=== PATIENT | female | born 1960 | race Caucasian/White ===

== ENCOUNTER 2018-12-15 14:47 | Emergency (ER) | payer SELFPAY ==
[~2018-12-15] VITALS: Ht 165.1 cm; Wt 104.3 kg
[2018-12-15 15:04] VITALS: Ht 165.1 cm; Wt 104.3 kg
[2018-12-15 15:42] LABS: BASOPHIL % 1.6 % (0-2); PLATELET COUNT 314 x10^3mcL (130-400)
[2018-12-15 15:49] LABS: CALCIUM 7.8 mg/dL (8.5-10.1); CARBON DIOXIDE 25.2 mmol/L (21-32); CHLORIDE SERUM 107 mmol/L (98-107); CREATININE SERUM 0.8 mg/dL (0.6-1.0); GFR1 > 60 mL/min; GLUCOSE SERUM 87 mg/dL (74-106); POTASSIUM SERUM 4.1 mmol/L (3.5-5.1); SODIUM SERUM 143 mmol/L (136-145)
[2018-12-15 15:55] LABS: ALKALINE PHOSPHATASE 67 U/L (46-116); ALT/SGPT 13 U/L (14-59); AST/SGOT 12 U/L (15-37); BILIRUBIN TOTAL 0.21 mg/dL (0.20-1.00); TOTAL PROTEIN, SERUM 7.5 g/dL (6.4-8.2)
[2018-12-15 15:56] LABS: ALBUMIN 3.2 g/dL (3.4-5.0)
[2018-12-15 16:35] VITALS: BP 125/87
== END 2018-12-15 16:35 | disposition home or self-care (01) ==
LOC: ED 14:47
DX: R07.89 Other chest pain (principal); F43.20 Adjustment disorder, unspecified; G47.00 Insomnia, unspecified; I10 Essential (primary) hypertension
CPT/HCPCS: 36415

== ENCOUNTER 2019-05-30 07:16 | Emergency (ER) | payer MEDICAID ==
[~2019-05-30] VITALS: Ht 165.1 cm; Wt 108.9 kg
[2019-05-30 07:24] VITALS: Ht 165.1 cm; Wt 108.9 kg
[2019-05-30 08:51] LABS: BASOPHIL % 2.2 % (0-2); PLATELET COUNT 368 x10^3mcL (130-400); RED CELL DISTRIBUTION WIDTH 13.8 % (11.5-14.5)
[2019-05-30 09:11] LABS: CALCIUM 9.2 mg/dL (8.5-10.1); CARBON DIOXIDE 27.1 mmol/L (21-32); CHLORIDE SERUM 105 mmol/L (98-107); CREATININE SERUM 0.8 mg/dL (0.6-1.0); GFR1 > 60 mL/min; GLUCOSE SERUM 93 mg/dL (74-106); POTASSIUM SERUM 4.7 mmol/L (3.5-5.1); SODIUM SERUM 140 mmol/L (136-145)
[2019-05-30 09:15] LABS: ALKALINE PHOSPHATASE 68 U/L (46-116); ALT/SGPT 35 U/L (14-59); AST/SGOT 24 U/L (15-37); BILIRUBIN TOTAL 0.2 mg/dL (0.20-1.00); TOTAL PROTEIN, SERUM 7.9 g/dL (6.4-8.2)
[2019-05-30 09:19] LABS: ALBUMIN 3.3 g/dL (3.4-5.0)
[2019-05-30 09:34] VITALS: BP 141/71
== END 2019-05-30 10:12 | disposition home or self-care (01) ==
LOC: ED 07:16
PROVIDERS: Emergency Medicine
DX: G43.909 Migraine, unspecified, not intractable, without status migrainosus (principal); R07.89 Other chest pain; I10 Essential (primary) hypertension
CPT/HCPCS: 83880; J1885; J2765; Q0092